=== PATIENT | female | born 1925 | race Caucasian/White ===

== ENCOUNTER → 2016-09-15 | Outpatient (CLI) | payer MEDICARE, BC ==
[~2016-09-15] MED LIST: AEROBID INHALER7 GM IH; AFRIN 15 ML15 ML NS; ALBUTEROL0.83 MG/ML IH; ALEVE 220MG220 MG PO; ASMANEX TW0.22 MG/A1 IH; ASPIRIN 81M81 MG/TA2 PO; ATROVENT I0.2 MG/1 M IH; ATROVENT INHALE14 GM IH; ATROVENT0.018 MG/A IH; BENICAR40 MG PO; BYSTOLIC10 MG PO; CALCIUM 600 + V1 TA1 PO; CALCIUM PO; CALTRATE-600 W600 MG PO; CELEXA 20MG20 MG/TAB PO; CENTRUM SILVER1 TA1 PO; CENTRUM SILVER1 TA3 PO; CEPHALEXIN500 M1 PO; COLACE 100100 MG/CAP PO; CORDARONE200 MG PO; COUMADIN 4MG4 MG/TAB PO; COUMADIN 5MG5 MG/TAB PO; COZAAR 25MG25 MG/TAB PO; CRANBERRY450 MG PO; DARVOCET-N-101 UDTAB PO; DETROL 2MG TAB2 MG PO; DIOVAN160 MG PO; ENALAPRIL; FENTANYL 50MCG TOP; FERROUS SU325 MG/TAB PO; FLAGYL500 MG PO; FLOMAX 0.40.4 MG/CAP PO; FLONASE NASAL S16 GM NS; FLOVENT 110MCG7.9 GM IH; FOLIC ACID1 MG PO; HYDRALAZINE HCL25 MG PO; HYDROCORTISONE13 TP; INCRUSE EL62.5 MCG/A IH; KELP; KELP PO; KELP TABLETS1 TAB PO; LASIX 20MG TABL20 MG PO; LEVAQUIN 750MG750 M1 PO; LEVOXYL0.075 MG PO; LIDODERM 5% PATC1 EA TP; LORTAB 5/500 501 TAB PO; NEURONTIN100 MG/CAP PO; NITROSTAT0.4 MG/TAB SL; NORCO 325 MG-51 TAB PO; NORMODYNE100 MG PO; NORVASC 5MG5 MG/TAB PO; PEPCID 20MG TAB20 MG PO; PERCOCET 325 MG1 TA2 PO; PHENERGAN 25 TA25 MG PO; PHENERGAN25 MG RC; PREDNISONE 5MG5 MG PO; PREDNISONE20 MG PO; PRIL40 PO; PROTONIX 40MG T40 MG PO; RAZADYNE ER24 MG PO; REGLAN 10MG10 MG/TAB PO; RESPIMAT INH; ROBITUSSIN DM 105 ML PO; SENOKOT S 50 MG1 TAB PO; SENOKOT8.6 MG PO; SYNTHROID0.05 MG/TA PO; TENORMIN 5050 MG/TAB PO; TESSALON PERLE100 MG PO; TYLENOL 325MG325 MG PO; TYLENOL 500MG500 MG PO; ULTRACET 325 MG1 TAB PO; ULTRAM 50MG TAB50 MG PO; VASOTEC 2.2.5 MG/TAB PO; VASOTEC10 MG PO; VESICARE 5MG5 MG PO; VESICARE PO; VESICARE5 MG PO; VITAMIN C500 MG PO; XARELTO20 MG PO; ZESTRIL 10MG10 MG PO; ZESTRIL 5MG5 MG PO; ZOFRAN 4MG T4 MG/TAB PO; ZOFRAN8 MG PO; [UNRECOGNIZED DRUG - MIXTURE] PO; [UNRECOGNIZED DRUG - OTHER]; [UNRECOGNIZED DRUG - OTHER]; [UNRECOGNIZED DRUG - OTHER]
[2016-09-15 16:27] LABS: POTASSIUM 4.3 mmol/L (3.4-5.0)
[2016-09-15 16:28] LABS: INR 1.1 (0.8-3.0); PROTHROMBIN TIME 12.1 SECONDS (9.7-12.8)
== END ==
LOC: ZLAB.STJ 16:18
PROVIDERS: Family Medicine
DX: R60.1 Generalized edema (principal); Z86.711 Personal history of pulmonary embolism

== ENCOUNTER 2016-09-23 05:25 | Emergency (ER) | payer MEDICARE, BC ==
[~2016-09-23] VITALS: Ht 152.4 cm; Wt 59.1 kg
[~2016-09-23 05:25] MED LIST changes: -ALBUTEROL0.83 MG/ML IH; -ASMANEX TW0.22 MG/A1 IH; -CEPHALEXIN500 M1 PO; -COZAAR 25MG25 MG/TAB PO; -DETROL 2MG TAB2 MG PO; -HYDROCORTISONE13 TP; -INCRUSE EL62.5 MCG/A IH; -NITROSTAT0.4 MG/TAB SL; -PREDNISONE20 MG PO; -PRIL40 PO; -RESPIMAT INH; -ROBITUSSIN DM 105 ML PO
[2016-09-23 05:32] VITALS: TEMP 97.3
[2016-09-23 06:02] LABS: BASO # 0.1 (0.0-0.2); BASO % 0.8 % (0.0-2.0); EOS # 0.2 (0.0-0.7); EOS % 3.3 % (0-4.0); GRAN # 4.1 (1.4-6.5); GRAN % 65.1 % (42.2-75.2); HEMATOCRIT 41.7 % (37.0-47.0); HEMOGLOBIN 14.1 g/dl (12.5-16.0); LYMPH # 1.1 (1.2-3.4); LYMPH % 17.4 % (20.0-51.0); MEAN CELL VOLUME 96 fl (80.0-100.0); MEAN CORPUSCULAR HEMOGLOBIN 33 pg (27.0-31.0); MEAN CORPUSCULAR HGB CONC 34 g/dl (33.0-37.0); MEAN PLATELET VOLUME 9.8 fl (7.4-10.4); MONO # 0.8 (0.1-0.6); MONO % 12.4 % (1.7-9.3); PLATELET COUNT 200 K/mm3 (130-400); RED BLOOD COUNT 4.34 M/mm3 (4.10-5.30); WHITE BLOOD COUNT 6.3 K/mm3 (4.8-10.8)
[2016-09-23 06:09] LABS: PROTHROMBIN TIME 11.6 SECONDS (9.7-12.8)
[2016-09-23 06:12] LABS: PARTIAL THROMBOPLASTIN TIME 32.3 SECONDS (26.0-37.0)
[2016-09-23 06:15] LABS: INFLUENZA B NEGATIVE
[2016-09-23 06:16] LABS: ADJUSTED CALCIUM 9.5 mg/dL (8.4-10.2); ALANINE AMINOTRANSFERASE 63 U/L (9-52); ALBUMIN 4.1 gm/dL (3.5-5.0); ALKALINE PHOSPHATASE 94 U/L (50-136); ANION GAP 11 mmol/L (7-16); BILIRUBIN,TOTAL 1.3 mg/dL (0.0-1.0); BLOOD UREA NITROGEN 16 mg/dL (7-17); CALCIUM 9.6 mg/dL (8.4-10.2); CARBON DIOXIDE 30 mmol/L (22-30); CHLORIDE 96 mmol/L (98-107); CREATININE, serum 0.65 mg/dL (0.52-1.25); GLUCOSE 111 mg/dL (74-106); MAGNESIUM 1.9 mg/dL (1.6-2.3); POTASSIUM 3.6 mmol/L (3.4-5.0); SODIUM 137 mmol/L (137-145); TOTAL PROTEIN 7.1 gm/dL (6.4-8.2)
[2016-09-23 06:24] LABS: B-TYPE NATRIURETIC PEPTIDE 888 pg/mL (0-450)
[2016-09-23 06:31] LABS: TROPONIN-I < 0.012 ng/mL (0.000-0.034)
[2016-09-23] MEDS ORDERED: PREDNISONE20 MG PO (07:33)
[2016-09-23] MEDS ORDERED: LASIX 20MG TABL20 MG PO (08:07)
[2016-09-23] MEDS ORDERED: DETROL 2MG TAB2 MG PO (08:08)
[2016-09-23 08:54] VITALS: BP 149/87; PULSE 90
== END 2016-09-23 08:54 | disposition home or self-care (01) ==
LOC: COL.ER 05:25
PROVIDERS: Emergency Medicine
DX: J45.909 Unspecified asthma, uncomplicated (principal); I11.0 Hypertensive heart disease with heart failure; I50.9 Heart failure, unspecified; F03.90 Unspecified dementia, unspecified severity, without behavioral disturbance, psychotic disturbance, mood disturbance, and anxiety; Z86.711 Personal history of pulmonary embolism; Z86.718 Personal history of other venous thrombosis and embolism
CPT/HCPCS: J2930

== ENCOUNTER → 2016-10-13 | Outpatient (CLI) | payer MEDICARE, BC ==
[~2016-10-13] MED LIST changes: +ALBUTEROL0.83 MG/ML IH; +ASMANEX TW0.22 MG/A1 IH; +CEPHALEXIN500 M1 PO; +COZAAR 25MG25 MG/TAB PO; +DETROL 2MG TAB2 MG PO; +HYDROCORTISONE13 TP; +INCRUSE EL62.5 MCG/A IH; +NITROSTAT0.4 MG/TAB SL; +PREDNISONE20 MG PO; +PRIL40 PO; +RESPIMAT INH; +ROBITUSSIN DM 105 ML PO
== END ==
LOC: ZLAB.STJ 11:48
PROVIDERS: Family Medicine
DX: E87.8 Other disorders of electrolyte and fluid balance, not elsewhere classified (principal)

== ENCOUNTER 2016-10-15 20:41 | Observation (INO) | payer MEDICARE, BC ==
[~2016-10-15] VITALS: Ht 162.6 cm; Wt 70.2 kg
[~2016-10-15 20:41] MED LIST changes: -ALBUTEROL0.83 MG/ML IH; -ASMANEX TW0.22 MG/A1 IH; -CEPHALEXIN500 M1 PO; -COZAAR 25MG25 MG/TAB PO; -HYDROCORTISONE13 TP; -INCRUSE EL62.5 MCG/A IH; -NITROSTAT0.4 MG/TAB SL; -PRIL40 PO; -RESPIMAT INH; -ROBITUSSIN DM 105 ML PO
[2016-10-15 21:00] LABS: BASO % 0.6 % (0.0-2.0); EOS # 0.2 (0.0-0.7); EOS % 3.7 % (0-4.0); GRAN # 3.7 (1.4-6.5); GRAN % 59.7 % (42.2-75.2); HEMATOCRIT 43.3 % (37.0-47.0); HEMOGLOBIN 14.2 g/dl (12.5-16.0); LYMPH # 1.5 (1.2-3.4); LYMPH % 23.4 % (20.0-51.0); MEAN CELL VOLUME 98 fl (80.0-100.0); MEAN CORPUSCULAR HEMOGLOBIN 32 pg (27.0-31.0); MEAN CORPUSCULAR HGB CONC 33 g/dl (33.0-37.0); MEAN PLATELET VOLUME 9.5 fl (7.4-10.4); MONO # 0.7 (0.1-0.6); MONO % 11.5 % (1.7-9.3); PLATELET COUNT 283 K/mm3 (130-400); RED BLOOD COUNT 4.44 M/mm3 (4.10-5.30); REDCELL DISTRIBUTION WIDTH-CV 12.4 % (11.5-14.5); WHITE BLOOD COUNT 6.3 K/mm3 (4.8-10.8)
[2016-10-15 21:05] LABS: INR 1.1 (0.8-3.0)
[2016-10-15 21:10] LABS: ADJUSTED CALCIUM 9.6 mg/dL (8.4-10.2); ALANINE AMINOTRANSFERASE 42 U/L (9-52); ALBUMIN 4.1 gm/dL (3.5-5.0); ALKALINE PHOSPHATASE 90 U/L (50-136); ANION GAP 11 mmol/L (7-16); BLOOD UREA NITROGEN 16 mg/dL (7-17); CALCIUM 9.7 mg/dL (8.4-10.2); CARBON DIOXIDE 30 mmol/L (22-30); CHLORIDE 93 mmol/L (98-107); CREATININE, serum 0.83 mg/dL (0.52-1.25); GLUCOSE 104 mg/dL (74-106); LIPASE 61 U/L (23-300); POTASSIUM 4.4 mmol/L (3.4-5.0); SODIUM 134 mmol/L (137-145); TOTAL PROTEIN 7.2 gm/dL (6.4-8.2)
[2016-10-15 21:31] LABS: TROPONIN-I < 0.012 ng/mL (0.000-0.034)
[2016-10-15] MEDS ORDERED: ASMANEX TW0.22 MG/A1 IH (21:58)
[2016-10-15] MEDS ORDERED: RESPIMAT INH (21:59)
[2016-10-15] MEDS ORDERED: ALBUTEROL0.83 MG/ML IH (22:00)
[2016-10-15 23:33] VITALS: BP 149/76; PULSE 91; TEMP 97.7
[2016-10-15 23:42] LABS: B-TYPE NATRIURETIC PEPTIDE 613 pg/mL (0-450)
[2016-10-15 23:44] LABS: PARTIAL THROMBOPLASTIN TIME 33.5 SECONDS (26.0-37.0)
[2016-10-16 00:28] LABS: CHOLESTEROL 139 mg/dL (120-200); HDL CHOLESTEROL 51 mg/dL; LDL CHOLESTEROL 72 mg/dL; TRIGLYCERIDE 82 mg/dL
[2016-10-16] MEDS ORDERED: HYDROCORTISONE13 TP (00:28)
[2016-10-16] MEDS ORDERED: ZOFRAN 4MG T4 MG/TAB PO (00:35)
[2016-10-16] MEDS ORDERED: ROBITUSSIN DM 105 ML PO (00:36)
[2016-10-16 03:37] VITALS: BP 150/76; PULSE 87; TEMP 97.7
[2016-10-16 08:02] VITALS: BP 178/73; PULSE 80; TEMP 97.5
[2016-10-16 12:20] VITALS: BP 168/69; PULSE 65; TEMP 97.4
[2016-10-16] MEDS ORDERED: INCRUSE EL62.5 MCG/A IH (15:00)
[2016-10-16] MEDS ORDERED: NITROSTAT0.4 MG/TAB SL (15:01)
[2016-10-16] MEDS ORDERED: COZAAR 25MG25 MG/TAB PO (15:05)
[2016-10-16] MEDS ORDERED: PRIL40 PO (15:07)
[2016-10-16 15:25] VITALS: BP 168/69; PULSE 65; TEMP 97.4
== END 2016-10-16 15:55 ==
LOC: COL.ER 20:41 → MEDICAL 22:16
PROVIDERS: Emergency Medicine
DX: R07.9 Chest pain, unspecified (principal); I10 Essential (primary) hypertension; Z86.711 Personal history of pulmonary embolism; Z66 Do not resuscitate; I50.9 Heart failure, unspecified; J45.909 Unspecified asthma, uncomplicated; K21.9 Gastro-esophageal reflux disease without esophagitis; E03.9 Hypothyroidism, unspecified
CPT/HCPCS: G0378; J1650; J7030; Q9967

== ENCOUNTER → 2016-12-14 | Outpatient (CLI) | payer MEDICARE, BC ==
[~2016-12-14] MED LIST changes: +ALBUTEROL0.83 MG/ML IH; +ASMANEX TW0.22 MG/A1 IH; +CEPHALEXIN500 M1 PO; +COZAAR 25MG25 MG/TAB PO; +HYDROCORTISONE13 TP; +INCRUSE EL62.5 MCG/A IH; +NITROSTAT0.4 MG/TAB SL; +PRIL40 PO; +RESPIMAT INH; +ROBITUSSIN DM 105 ML PO
[2016-12-14 19:32] LABS: POTASSIUM 4.7 mmol/L (3.4-5.0)
== END ==
LOC: ZLAB.STJ 12:00
PROVIDERS: Family Medicine
DX: Z02.89 Encounter for other administrative examinations (principal)

== ENCOUNTER → 2016-12-15 | Outpatient (CLI) | payer MEDICARE, BC ==
[2016-12-15 21:23] LABS: PH 6 (5-8); SQUAMOUS EPITHELIAL 0-2 /hpf; URINE APPEARANCE Clear; URINE BACTERIA None Seen /hpf; URINE BILIRUBIN Negative (NEGATIVE); URINE BLOOD Negative (NEGATIVE); URINE COLOR Straw; URINE GLUCOSE Negative (NEGATIVE); URINE KETONE Negative (NEGATIVE); URINE RBC 0-2 /hpf; URINE UROBILINOGEN Negative (NEGATIVE); URINE WBC 0-2 /hpf
== END ==
LOC: ZLAB.STJ 21:12
PROVIDERS: Family Medicine
DX: N39.0 Urinary tract infection, site not specified (principal); Z02.89 Encounter for other administrative examinations

== ENCOUNTER → 2016-12-16 | Outpatient (CLI) | payer MEDICARE, BC ==
[2016-12-16 13:16] LABS: CALCIUM 9.7 mg/dL (8.4-10.2); CREATININE, serum 0.65 mg/dL (0.52-1.25); POTASSIUM 4.7 mmol/L (3.4-5.0)
== END ==
LOC: ZLAB.STJ 11:59
PROVIDERS: Family Medicine
DX: Z02.89 Encounter for other administrative examinations (principal)

== ENCOUNTER → 2016-12-21 | Outpatient (CLI) | payer MEDICARE, BC ==
[2016-12-21 13:52] LABS: PH 7 (5-8); SQUAMOUS EPITHELIAL 0-2 /hpf; URINE APPEARANCE Clear; URINE BACTERIA None Seen /hpf; URINE BILIRUBIN Negative (NEGATIVE); URINE BLOOD Negative (NEGATIVE); URINE COLOR Yellow; URINE GLUCOSE Negative (NEGATIVE); URINE KETONE Negative (NEGATIVE); URINE RBC 0-2 /hpf; URINE UROBILINOGEN Negative (NEGATIVE); URINE WBC 20-50 /hpf
== END ==
LOC: ZLAB.STJ 09:53
PROVIDERS: Family Medicine
DX: Z02.89 Encounter for other administrative examinations (principal)

== ENCOUNTER → 2017-01-02 | Outpatient (CLI) | payer MEDICARE, BC ==
[2017-01-02 16:04] LABS: HEMATOCRIT 44.7 % (37.0-47.0); HEMOGLOBIN 14.8 g/dl (12.5-16.0); MEAN CELL VOLUME 97 fl (80.0-100.0); MEAN CORPUSCULAR HEMOGLOBIN 32 pg (27.0-31.0); MEAN CORPUSCULAR HGB CONC 33 g/dl (33.0-37.0); MEAN PLATELET VOLUME 9.8 fl (7.4-10.4); PLATELET COUNT 250 K/mm3 (130-400); REDCELL DISTRIBUTION WIDTH-CV 12.4 % (11.5-14.5); WHITE BLOOD COUNT 9.7 K/mm3 (4.8-10.8)
[2017-01-02 16:12] LABS: PH 6 (5-8); SQUAMOUS EPITHELIAL 0-2 /hpf; URINE APPEARANCE Clear; URINE BACTERIA None Seen /hpf; URINE BILIRUBIN Negative (NEGATIVE); URINE BLOOD Negative (NEGATIVE); URINE COLOR Yellow; URINE GLUCOSE Negative (NEGATIVE); URINE KETONE Negative (NEGATIVE); URINE RBC 0-2 /hpf; URINE UROBILINOGEN Negative (NEGATIVE)
== END ==
LOC: ZLAB.STJ 14:55
PROVIDERS: Family Medicine
DX: R11.0 Nausea (principal); N39.0 Urinary tract infection, site not specified

== ENCOUNTER 2017-01-04 02:06 | Emergency (ER) | payer MEDICARE, BC ==
[~2017-01-04] VITALS: Ht 157.5 cm; Wt 68.2 kg
[~2017-01-04 02:06] MED LIST changes: -CEPHALEXIN500 M1 PO
[2017-01-04 02:07] VITALS: TEMP 97
[2017-01-04 04:21] VITALS: BP 161/72; PULSE 62
[2017-01-04] MEDS ORDERED: CEPHALEXIN500 M1 PO (05:06)
== END 2017-01-04 05:28 | disposition home or self-care (01) ==
LOC: COL.ER 02:06
DX: R04.0 Epistaxis (principal); I11.0 Hypertensive heart disease with heart failure; I50.9 Heart failure, unspecified; J45.909 Unspecified asthma, uncomplicated; Z79.82 Long term (current) use of aspirin

== ENCOUNTER → 2017-01-05 | Outpatient (REF) ==
[~2017-01-05] MED LIST changes: +CEPHALEXIN500 M1 PO
[2017-01-05 09:53] LABS: CREATININE, serum 0.7 mg/dL (0.52-1.25)
== END ==
LOC: ZLAB.STJ 09:14
PROVIDERS: Family Medicine
DX: Z01.89 Encounter for other specified special examinations (principal)

== ENCOUNTER → 2017-01-18 | Outpatient (REF) ==
[2017-01-18 09:36] LABS: BASO % 0.6 % (0.0-2.0); EOS # 0.3 (0.0-0.7); GRAN # 3.1 (1.4-6.5); GRAN % 58.9 % (42.2-75.2); HEMATOCRIT 37.5 % (37.0-47.0); HEMOGLOBIN 12.6 g/dl (12.5-16.0); LYMPH # 1.3 (1.2-3.4); LYMPH % 24.1 % (20.0-51.0); MEAN CELL VOLUME 96 fl (80.0-100.0); MEAN CORPUSCULAR HEMOGLOBIN 32 pg (27.0-31.0); MEAN CORPUSCULAR HGB CONC 34 g/dl (33.0-37.0); MEAN PLATELET VOLUME 9.9 fl (7.4-10.4); MONO # 0.6 (0.1-0.6); MONO % 10.6 % (1.7-9.3); PLATELET COUNT 259 K/mm3 (130-400); REDCELL DISTRIBUTION WIDTH-CV 12.4 % (11.5-14.5); WHITE BLOOD COUNT 5.2 K/mm3 (4.8-10.8)
== END ==
LOC: ZLAB.STJ 09:21
PROVIDERS: Family Medicine
DX: Z01.89 Encounter for other specified special examinations (principal)

== ENCOUNTER → 2017-02-15 | Outpatient (REF) ==
[2017-02-15 10:19] LABS: CREATININE, serum 0.66 mg/dL (0.52-1.25); POTASSIUM 4.5 mmol/L (3.4-5.0)
== END ==
LOC: ZLAB.STJ 09:58
PROVIDERS: Family Medicine
DX: Z01.89 Encounter for other specified special examinations (principal)

== ENCOUNTER → 2017-07-18 | Outpatient (CLI) | payer MEDICARE, BC ==
[2017-07-18 10:23] LABS: CALCIUM 8.9 mg/dL (8.4-10.2); CREATININE, serum 0.84 mg/dL (0.52-1.25); POTASSIUM 4.5 mmol/L (3.4-5.0)
== END ==
LOC: ZLAB.STJ 09:47
PROVIDERS: Family Medicine
DX: I50.9 Heart failure, unspecified (principal)